=== PATIENT | female | born 1995 | race Caucasian/White ===

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

== ENCOUNTER 2017-05-17 23:19 | Emergency (ER) | payer MEDICAID, SELFPAY ==
--- NOTE | 2017-05-17 23:51 | RAD ---
CHEST TWO VIEWS: 05/17/17 HISTORY: Chest pain. FINDINGS: No comparison. The cardiac silhouette and pulmonary vasculature are unremarkable. Mediastinum is mid line. There is no confluent air space consolidation, pneumothorax or pleural fluid evident. IMPRESSION: No active cardiopulmonary abnormalities are demonstrated. POS: [facility]
[2017-05-18] MEDS ORDERED: HYDROcodone/Acetaminophen 5/325 mg Tablet ONE (00:14)
[2017-05-18] MEDS ORDERED: Dexamethasone 4 MG TAB ONE ×2 (00:15)
[2017-05-18] MEDS ORDERED: Acetaminophen 325 MG TAB ONE (00:15)
[2017-05-18] MEDS ORDERED: Ibuprofen 600 MG TAB ONE (00:15)
== END 2017-05-18 00:24 | disposition home or self-care (01) ==
LOC: MADERS 23:19
DX: R07.82 Intercostal pain (principal); M32.9 Systemic lupus erythematosus, unspecified; Z79.899 Other long term (current) drug therapy; Z79.1 Long term (current) use of non-steroidal anti-inflammatories (NSAID)
CPT/HCPCS: 71020; 93005; J8540

== ENCOUNTER 2017-08-31 02:19 | Emergency (ER) | payer MEDICAID, SELFPAY ==
[2017-08-31] MEDS ORDERED: Ondansetron ODT 4 MG TAB ONE (02:45)
[2017-08-31] MEDS ORDERED: predniSONE 20 MG TAB ONE (02:45)
[2017-08-31] MEDS ORDERED: Pseudoephedrine HCl 30 MG TAB ONE (02:45)
[2017-08-31] MEDS ORDERED: Amoxicillin/Potassium Clav 500 MG TAB ONE (02:45)
== END 2017-08-31 02:55 | disposition home or self-care (01) ==
LOC: MADERS 02:19
DX: J02.9 Acute pharyngitis, unspecified (principal); J01.90 Acute sinusitis, unspecified
CPT/HCPCS: 99282; J7506; Q0162

== ENCOUNTER 2017-11-11 14:13 | Emergency (ER) | payer MEDICAID, SELFPAY ==
[~2017-11-11 14:13] MED LIST: Iopamidol 370 76% 125 ML VIAL FS ONE; Sodium Chloride 0.9% 1,000 ML BAG ONE; Sodium Chloride 0.9% 100 ML BAG ONE
[2017-11-11 15:05] LABS: #Basophils 0.1 thou/uL (0.0-0.2); #Lymphocytes 0.9 thou/uL (1.20-3.40); #Monocytes 0.3 thou/uL (0.11-0.59); #Neutrophils 11.7 thou/uL (1.40-6.50); %Basophils 0.6 % (0.0-1.0); %Eosinophils 0.1 % (0.0-10.0); %Lymphocytes 6.6 % (28.0-48.0); %Monocytes 2.3 % (0.0-4.0); %Neutrophils 90.4 % (31.0-61.0); Hemoglobin 11.2 g/dL (12.0-16.0); Mean Corpuscular HGB CONC 31.9 g/dL (32.0-36.0); Mean Corpuscular Hemoglobin 29.5 pg (25.0-35.0); Mean Corpuscular Volume 92.6 fl (77.0-87.0); Mean Platelet Volume 6.3 fL (7.4-10.4); Platelet Count 429 thou/uL (130-400); RBC Distribution Width 11.9 % (11.5-14.5); Red Blood Cell (RBC) Count 3.79 mill/uL (4.00-5.20)
--- NOTE | 2017-11-11 15:17 | RAD ---
AP VIEW CHEST: Date: 11/11/17 INDICATION: 22-year-old female with fever. FINDINGS: There is a cavitary lesion seen within the right upper lobe measuring 4.0 cm. There is air space cons olidation involving both lower lobes. There are tiny bilateral pleural effusions. Heart size is spencer l. No acute osseous abnormality is evident. IMPRESSION: Bibasilar air space consolidation suspicious for pneumonia. There is a new cavitary lesion when mac red to prior dated 05/17/17 within the right upper lobe, suspicious for possible cavitary pneumonia. No pneumothorax is evident. There are tiny bilateral pleural effusions. CT examination may be helpful for improved characterization. CODE T. POS: [facility]
[2017-11-11 15:19] LABS: Bilirubin Moderate (Negative); Blood, Urine Large (Negative); Clarity Slightly Cloudy (Clear); Glucose, Urine (Dipstick) 100 mg/dL (Negative); Leukocyte Trace (Negative); Nitrite Positive (Negative); Protein, Urine (Dipstick) 100 mg/dL (Neg-Trace); Specific Gravity, Urine 1.015 (1.005-1.030); Urobilinogen > or = 8.0 mg/dL (0.2-1.0); pH, Urine 5.5 (5.0-9.0)
[2017-11-11 15:20] LABS: ALT (SGPT) 17 U/L (8-55); AST (SGOT) 25 U/L (5-34); Albumin 2.8 g/dL (3.5-5.0); Alkaline Phosphatase 96 U/L (40-150); Anion Gap 18 mmol/L (10-20); BUN (Urea Nitrogen) 16 mg/dL (7.0-18.7); Bacteria/HPF 3+ HPF (None Seen); Bilirubin, Total 1.3 mg/dL (0.2-1.2); CK (CPK) 73 U/L (29-168); Calc. Creatinine Clearance 0 mL/min (70-130); Calcium 8.4 mg/dL (7.8-10.44); Carbon Dioxide 22 mmol/L (22-29); Chloride 98 mmol/L (98-107); Estimated GFR-MDRD Greater than 90; Glucose 93 mg/dL (70-105); Potassium 3.3 mmol/L (3.5-5.1); Protein, Total 6.8 g/dL (6.0-8.3); RBC/HPF 21-50 HPF (0-3); Sodium 135 mmol/L (136-145)
[2017-11-11 15:22] LABS: CKMB 0.7 ng/mL (0-6.6); Troponin I Less than 0.010 ng/mL (< 0.028)
[2017-11-11] MEDS ORDERED: Ketorolac Tromethamine 30 MG/ML VIAL ONE (15:28)
[2017-11-11] MEDS ORDERED: Meropenem 1 GM VIAL ONE (15:44)
--- NOTE | 2017-11-11 16:48 | CT ---
CT ANGIOGRAM THORAX WITH IV CONTRAST AND 3D RECONSTRUCTIONS: DATE: 11/11/17. HISTORY: Chest pain. The patient is unable to lie flat on back without coughing constantly. FINDINGS: There is motion artifact present on the provided images. There are multiple cavitary lesions seen wi thin the lungs bilaterally with large cavitary right upper lobe lesion measuring approximately 5.5 cm x 4.4 cm with a right lower lobe cavitary lesion measuring 7.3 cm x 6.7 cm and a left lower lobe cav itary lesion measuring approximately 4.7 cm x 4 cm. There are additional smaller nodules seen within the upper lobes bilaterally, some of which also demonstrate cavitations. Findings are worrisome for an infectious probably an atypical infectious process. There is consolidation present at the right lung base which may related to pneumonia. There is a small right and moderate-sized left pleural eff usions. Cardiac silhouette is borderline enlarged. There is a tiny pericardial effusion present. Although there is motion artifact, no definitive filling defect is seen in the pulmonary arteries, al though there is suboptimal evaluation of the subsegmental pulmonary arteries in the lower lobes. Thoracic aorta is normal in caliber without evidence of an aortic dissection. The visualized upper abdomen has a normal CT appearance. IMPRESSION: 1. Large bilateral cavitary lesions as well as smaller pulmonary nodules and cavitary nodules in the lungs bilaterally. Findings are worrisome for atypical infectious process. There is also consolida tion at the right lung base likely related to pneumonia. 2. Small right and moderate-sized left pleural effusions. There is consolidation at the left lung b ase probably related to passive atelectasis. 3. Limited evaluation of the pulmonary arteries due to patient motion and phase of contrast enhancem ent. However, no pulmonary embolus is seen within the central or segmental pulmonary arteries. CODE T POS: [facility]
== END 2017-11-11 17:15 | disposition home or self-care (01) ==
LOC: MADERS 14:13
DX: A41.9 Sepsis, unspecified organism (principal); J18.8 Other pneumonia, unspecified organism; M25.551 Pain in right hip; Z79.899 Other long term (current) drug therapy
CPT/HCPCS: 36415; 71045; 71275; 80053; 81003; 81015; 82550; 82553; 83605; 83880; 84484; 85025; 85379; 85652; 87040; 87070; 87077; 87116; 87149; 87186; 87205; 87206; 87804; 93005; 96361; 96365; 96375; J1885; J2185; J7050

== ENCOUNTER 2018-06-18 02:19 | Emergency (ER) | payer MEDICAID, OTHER ==
[2018-06-18 02:54] LABS: #Basophils 0.1 thou/uL (0.0-0.2); #Lymphocytes 0.8 thou/uL (1.20-3.40); #Monocytes 0.6 thou/uL (0.11-0.59); #Neutrophils 9.9 thou/uL (1.40-6.50); %Basophils 0.4 % (0.0-1.0); %Eosinophils 0.2 % (0.0-10.0); %Lymphocytes 6.8 % (28.0-48.0); %Monocytes 4.8 % (0.0-4.0); %Neutrophils 87.7 % (31.0-61.0); Mean Corpuscular HGB CONC 34.4 g/dL (32.0-36.0); Mean Corpuscular Hemoglobin 30.5 pg (25.0-35.0); Mean Corpuscular Volume 88.4 fL (78.0-98.0); Mean Platelet Volume 6.3 fL (7.4-10.4); Platelet Count 265 thou/uL (130-400); RBC Distribution Width 11.2 % (11.5-14.5); Red Blood Cell (RBC) Count 4.28 mill/uL (4.00-5.20); White Blood Cell (WBC) Count 11.3 thou/uL (4.8-10.8)
[2018-06-18] MEDS ORDERED: Cefepime 1 GM VIAL ONE (03:03)
[2018-06-18 03:11] LABS: ALT (SGPT) 9 U/L (8-55); AST (SGOT) 14 U/L (5-34); Albumin 4.4 g/dL (3.5-5.0); Alkaline Phosphatase 68 U/L (40-150); Anion Gap 15 mmol/L (10-20); BUN (Urea Nitrogen) 12 mg/dL (7.0-18.7); Bilirubin, Total 0.5 mg/dL (0.2-1.2); Calc. Creatinine Clearance 0 mL/min (70-130); Calcium 9.2 mg/dL (7.8-10.44); Carbon Dioxide 20 mmol/L (22-29); Chloride 111 mmol/L (98-107); Estimated GFR-MDRD Greater than 90; Globulin 2.4 g/dL (2.4-3.5); Glucose 97 mg/dL (70-105); Potassium 3.6 mmol/L (3.5-5.1); Protein, Total 6.8 g/dL (6.0-8.3); Sodium 142 mmol/L (136-145)
[2018-06-18] MEDS ORDERED: Sodium Chloride 0.9% 1,000 ML BAG ONE (09:23)
[2018-06-18] MEDS ORDERED: Sodium Chloride 0.9% 100 ML BAG ONE (09:23)
== END 2018-06-18 04:30 | disposition short-term general hospital (02) ==
LOC: MADERS 02:19
DX: M79.661 Pain in right lower leg (principal); R65.10 Systemic inflammatory response syndrome (SIRS) of non-infectious origin without acute organ dysfunction
CPT/HCPCS: 36415; 80053; 83605; 85025; 87040; 96365; 96375; J0692; J3370; J7050